=== PATIENT | female | born 1985 | race African-American/Black ===

== ENCOUNTER 2016-09-12 15:42 | Inpatient (IN) | payer SELFPAY ==
[~2016-09-12] VITALS: Ht 157.5 cm; Wt 69.4 kg
[2016-09-15 20:28] VITALS: Ht 157.5 cm; Wt 69.4 kg
[2016-09-15] MEDS ORDERED: AMPICILLIN 2 GM/NS (PMX) 100 ML IV ONE (20:30)
[2016-09-15] MEDS ORDERED: OXYTOCIN 30 UNITS/LR 500 ML IV PRN (20:30)
[2016-09-15] MEDS ORDERED: LIDOCAINE 1% (MPF) 30 ML INJ INJ PRN (20:30)
[2016-09-15] MEDS ORDERED: METHYLERGONOVINE 0.2 MG INJ IM PRN (20:30)
[2016-09-15] MEDS ORDERED: CARBOPROST 250 MCG INJ IM PRN (20:30)
[2016-09-15] MEDS ORDERED: BUTORPHANOL 2 MG INJ IV PRN (20:30)
[2016-09-15] MEDS ORDERED: MISOPROSTOL 200 MCG TAB PR PRN (20:30)
--- NOTE | 2016-09-15 21:22 | RADRPT ---
PROCEDURE: US OB. CLINICAL INDICATION: Induction of labor. Uncertain dates. TECHNIQUE: Multiple sonographic images of the uterus were obtained. The images were revi ewed on a PACS workstation. COMPARISON: No prior studies are available for comparison. FINDINGS: There is a single live intrauterine gestation. heart rate is 136 beats per minute. Measurements were made in order to determine age. The results are as follows: BPD = not visualized due to low position. HC = not visualized due to low position. AC = 36.14 cm. FL = 7.99 cm. Estimated weight is 4053 +/- 648 grams. LMP growth percentile is 78 %. Menstrual age by ultrasound dates is 40 weeks 3 days. Position is cephalic and placenta is anterior grade III. There is no evidence for an abruption or pl acenta previa. IMPRESSION: 1. Single live intrauterine gestation of 40 weeks 3 days menstrual age by ultrasound dates. 2. The position is cephalic with head in low position. RPTAT: QQ .Skip Hammond MD, MD Date Time Electronically viewed and signed by .Skip Hammond MD, on 09/15/2016 21:22 .R/
[2016-09-15 21:28] LABS: ADD SCAN DIFF NO
[2016-09-15] MEDS: LACTATED RINGER'S 1,000 ML IV SCH (21:29)
[2016-09-15 21:35] LABS: BASOPHILS % 0.3 % (0.0-2.0); HEMATOCRIT 33.2 % (37.0-47.0); HEMOGLOBIN 11.4 g/dl (12.0-16.0); LYMPHOCYTES # 1.3 10^3/ul (0.8-2.9); LYMPHOCYTES % 17.5 % (15.0-51.0); MEAN CORPUSCULAR HEMOGLOBIN 28.6 pg (29.0-33.0); MEAN CORPUSCULAR HGB CONC 34.3 g/dl (32.0-37.0); MEAN CORPUSCULAR VOLUME 83.4 fl (82.0-101.0); MEAN PLATELET VOLUME 10.8 fl (7.4-10.4); MONOCYTE # 0.6 10^3/ul (0.3-0.9); MONOCYTES % 7.2 % (0.0-11.0); NEUTROPHIL # 5.7 10^3/ul (1.6-7.5); PLATELET COUNT 238 10^3/UL (140-415); RED BLOOD COUNT 3.98 10^6/ul (4.20-5.40); RED CELL DISTRIBUTION WIDTH 13.5 % (11.5-14.5); WHITE BLOOD COUNT 7.7 10^3/ul (4.8-10.8)
[2016-09-15 21:42] LABS: INR 0.88; PROTIME 11.9 Sec (12.2-14.2); PT RATIO 0.9
[2016-09-15 21:43] LABS: PARTIAL THROMBOPLASTIN TIME 23.3 Sec (25.0-35.0)
[2016-09-15] MEDS ORDERED: LACTATED RINGER'S 1,000 ML IV PRN (23:00)
[2016-09-16] MEDS: AMPICILLIN 1 GM/NS (PMX) 50 ML IV SCH ×6 (02:04→20:23)
[2016-09-16] MEDS ORDERED: DINOPROSTONE 10 MG VAG SUPP VAG ONE ×2 (04:00→18:00)
[2016-09-16] MEDS: LACTATED RINGER'S 1,000 ML IV SCH ×3 (05:15→23:22)
--- NOTE | 2016-09-16 13:41 | HP ---
Date/Time of Note Date/Time of Note DATE: 09/16/16 TIME: 13:34 OB - History Hx of Present Free Text/Dictation 30 y.o EDC 09/12/16 CAME FOR INDUCTION OF LABOR FOR POSTDATE INTIAL VE FTP LONG -3 HAVINF UTERINE CONTRACTION IRREGULARLY EFW 4053 +/- 648 ADMITTED FOR INDUCTION BY CERVIDIL INSERTION Chief Complaint: FOR INDUCTION Estimated Due Date: Sep 12, 2016 : 1 Para: 0 Spontaneous : 0 Therapeutic : 0 Care: Good Care Ultrasounds: Normal mid trimester US Obstetrical Complications: None Medical Complications: None Past Family/Social History * Past Medical, Surgical, Family and Obstetric Histories reviewed from chart. Blood Type: B+ Rubella: immune RPR/VDRL: Negative GBS Status: Positive HBsAG: Negative OB Admission Exam Physical Exam HEENT: WNL Heart: Rhythm Normal Lungs: Clear, Equal Abdomen: WNL Extremities: Normal Reflexes: Normal Cervical Dilatation: Fingertip Effacement: 0% Station: -3 Membranes: Intact Amniotic Fluid: Unevaluable Heart Rate: 130's Accelerations: Accelerations Present Decelerations: No Decelerations Varibility: Moderate Contractions on Admission: >10 Minutes Apart Intensity: Mild Last 72 hours Lab Results CBC & BMP 09/15/16 21:00 OB Assessment/Plan Other Assessment: IUP 40W3D FOR INDUCTION Plan: Induction Induction Method: per Misoprostol Protocol BRANDO LLANOS MD Sep 16, 2016 13:41
[2016-09-17] MEDS: AMPICILLIN 1 GM/NS (PMX) 50 ML IV SCH ×6 (00:40→20:09)
[2016-09-17] MEDS: LACTATED RINGER'S 1,000 ML IV SCH ×3 (05:53→20:09)
[2016-09-17 07:43] VITALS: BP 106/68; PULSE 84; RESP 20
[2016-09-17] MEDS ORDERED: OXYTOCIN 30 UNITS/LR 500 ML IV SCH ×2 (15:00)
[2016-09-17] MEDS: OXYTOCIN 30 UNITS/LR 500 ML IV SCH (15:12)
[2016-09-17] MEDS ORDERED: DINOPROSTONE 10 MG VAG SUPP VAG ONE (20:00)
[2016-09-18] MEDS: AMPICILLIN 1 GM/NS (PMX) 50 ML IV SCH ×2 (00:31→04:25)
[2016-09-18] MEDS: LACTATED RINGER'S 1,000 ML IV SCH ×3 (00:31→17:37)
[2016-09-18] MEDS ORDERED: MISOPROSTOL 25 MCG CAPSULE PO SCH (09:00)
--- NOTE | 2016-09-18 16:12 | RADRPT ---
PROCEDURE: US biophysical profile. CLINICAL INDICATION: Decreased motion. TECHNIQUE: Multiple sonographic images of the uterus were obtained. The images were revi ewed on a PACS workstation. COMPARISON: No prior studies are available for comparison. FINDINGS: There is a single live intrauterine gestation. heart rate is 139 beats per minute. The position is cephalic. The placenta is anterior grade II with no abruption or previa. The ANDRE is 20.0 cm. (Normal = 5-20 cm.) Breathing Movement: 2 Gross Body Movement: 2 Tone: 2 Qualitative Amniotic Fluid Volume: 2 TOTAL: 8 IMPRESSION: 1. The biophysical score is 8/8. RPTAT: QQ .Skip Hammond MD, MD Date Time Electronically viewed and signed by .Skip Hammond MD, on 09/18/2016 16:12 .R/
[2016-09-18] MEDS ORDERED: FENTAnyl 2MCG/ML-ROPIV 0.2% 100 ML ONE (22:14)
[2016-09-18] MEDS: OXYTOCIN 30 UNITS/LR 500 ML IV SCH (23:26)
[2016-09-19] MEDS ORDERED: ONDANSETRON 4 MG INJ IV PRN
[2016-09-19] MEDS ORDERED: NALOXONE (0.4 MG/ML) INJ IV PRN
[2016-09-19] MEDS ORDERED: FENTAnyl 2MCG/ML-ROPIV 0.2% 100 ML BAG EPI SCH ×2
[2016-09-19] MEDS ORDERED: DIPHENHYDRAMINE 50 MG INJ IV PRN
[2016-09-19] MEDS: LACTATED RINGER'S 1,000 ML IV SCH ×3 (01:50→13:54)
[2016-09-19] MEDS ORDERED: AMPICILLIN 2 GM/NS (PMX) 100 ML ONE (07:21)
[2016-09-19] MEDS ORDERED: PRENAT PO (07:29)
[2016-09-19] MEDS ORDERED: AMPICILLIN 2 GM/NS (PMX) 100 ML IVPB ONE (07:30)
[2016-09-19] MEDS: DEXTROSE 5%-LR 1,000 ML IV SCH ×2 (09:08→16:05)
[2016-09-19] MEDS: AMPICILLIN 1 GM/NS (PMX) 50 ML IVPB SCH ×3 (11:38→16:00)
--- NOTE | 2016-09-19 17:07 | LDN ---
Date/Time of Note Date/Time of Note DATE: 09/19/16 TIME: 17:04 Delivery Summary normal vaginal delivery Placenta Delivered: Spontaneously Perineum intact?: No Perineal laceration: 2 Perineal laceration repair: 00ch gut Anesthesia type: Epidural Sponge & Needle done & correct: Yes All needle counts correct: Yes Any foreign bodies felt in the: No Problems: Delivery Information Sex Infant Sex: female Apgars 1 Minute: 8 5 Minute: 9 Suctioning Delee suction performed: No Umbilical Cord Umbilical cord with: 3 Vessels Cord presentations: no nuchal cord Cord Blood was obtained: Yes Mother & Baby Disposition Disposition Mom & Baby to Maternity; Good: Yes Mom transferred to: Other () Baby to NICU: No BRANDO LLANOS MD Sep 19, 2016 17:06
[2016-09-19] MEDS: IBUPROFEN 600 MG TAB PO PRN ×2 (17:20→19:26)
[2016-09-19 20:45] VITALS: BP 114/54; PULSE 85; RESP 18
[2016-09-19] MEDS ORDERED: BENZOCAINE 20% 56 ML SPRAY TOP PRN (22:00)
[2016-09-19] MEDS ORDERED: OXYCODONE/ASPIRIN (4.88/325) TAB PO PRN ×2 (22:00)
[2016-09-19] MEDS ORDERED: ZOLPIDEM 5 MG TAB PO PRN (22:00)
[2016-09-19] MEDS ORDERED: LANOLIN 7 GM TUBE TOP PRN (22:00)
[2016-09-19] MEDS ORDERED: MISOPROSTOL 200 MCG TAB PR PRN (22:00)
[2016-09-19] MEDS ORDERED: CARBOPROST 250 MCG INJ IM PRN (22:00)
[2016-09-19] MEDS ORDERED: METHYLERGONOVINE 0.2 MG INJ IM PRN (22:00)
[2016-09-19] MEDS ORDERED: OXYTOCIN 30 UNITS/LR 500 ML IV PRN (22:00)
[2016-09-19] MEDS ORDERED: WITCH HAZEL/GLYCERIN PAD PR PRN (22:00)
[2016-09-19] MEDS: IBUPROFEN 600 MG TAB PO SCH (23:42)
[2016-09-20] VITALS: BP 99/67; PULSE 91; RESP 18
[2016-09-20 04:00] VITALS: BP 97/56; PULSE 88; RESP 18
[2016-09-20] MEDS: IBUPROFEN 600 MG TAB PO SCH ×3 (05:45→18:00)
[2016-09-20 07:30] LABS: ADD SCAN DIFF NO
[2016-09-20 07:33] LABS: BASOPHILS % 0.2 % (0.0-2.0); EOSINOPHILS % 0.2 % (0.0-7.0); HEMATOCRIT 22.9 % (37.0-47.0); HEMOGLOBIN 7.9 g/dl (12.0-16.0); LYMPHOCYTES # 1.5 10^3/ul (0.8-2.9); LYMPHOCYTES % 11.2 % (15.0-51.0); MEAN CORPUSCULAR HEMOGLOBIN 28.4 pg (29.0-33.0); MEAN CORPUSCULAR HGB CONC 34.5 g/dl (32.0-37.0); MEAN CORPUSCULAR VOLUME 82.4 fl (82.0-101.0); MEAN PLATELET VOLUME 10.9 fl (7.4-10.4); MONOCYTE # 1.1 10^3/ul (0.3-0.9); MONOCYTES % 8.5 % (0.0-11.0); NEUTROPHIL # 10.3 10^3/ul (1.6-7.5); NEUTROPHILS % 79.4 % (39.0-77.0); PLATELET COUNT 179 10^3/UL (140-415); RED BLOOD COUNT 2.78 10^6/ul (4.20-5.40); RED CELL DISTRIBUTION WIDTH 13.6 % (11.5-14.5)
[2016-09-20 08:00] VITALS: BP 95/55; PULSE 85; RESP 18
[2016-09-20 12:30] VITALS: BP 108/60; PULSE 91; RESP 18
[2016-09-20] MEDS: SENNA/DOCUSATE NA (8.6MG/50MG) TAB PO SCH ×2 (12:51→21:08)
[2016-09-20 15:34] VITALS: BP 107/56; PULSE 85; RESP 18
[2016-09-20 20:00] VITALS: BP 115/53; PULSE 85; RESP 18
[2016-09-20] MEDS: FERROUS GLUCONATE (EC) 325 MG TAB PO SCH (21:08)
--- NOTE | 2016-09-20 21:10 | PN ---
Date/Time of Note Date/Time of Note DATE: 09/20/16 TIME: 20:58 OB Subjective Subjective Subjective sleepy no other c/o such as dizziness or palpitation OB Objective Objective Objective vss afebrile fundus firm lochia min ext neg OB Assessment/Plan Other Assessment: stable s/p normal vaginal delivery Other plan: discharge home in am BRANDO LLANOS MD Sep 20, 2016 21:09
--- NOTE | 2016-09-20 21:12 | PD.PPDC ---
[facility] Discharge Instruction Diagnosis Final Diagnosis: s/p normal vaginal delivery Condition Patient Condition: Stable Diet Diet: Resume Regular Diet Activity/Restrictions Activity: May Shower Restrictions: No Lifting No Sexual Activity Nothing in the Vagina No [place] No Tampons, douche Follow-up Follow-up with Physician: 2, Week/Weeks Return to clinic for [facility] Instructions: Fever greater than 101 Chills Worsening abdominal pain Excessive Vaginal Bleeding More than 2 pads per hour Unable to tolerate diet OB Instructions: Breast Tenderness Depression Blurried Vision Headache BRANDO LLANOS MD Sep 20, 2016 21:12
--- NOTE | 2016-09-20 21:14 | DS ---
Date/Time of Note Date/Time of Note DATE: 09/20/16 TIME: 21:13 Obstetrical Discharge Record Final Diagnosis Final Diagnosis: Term delivered Vaginal Delivery Obstetrical Delivery: Spontaneous, Laceration, Repaired Complications Other (postdate) Augmentation: Yes Induction: Yes Condition on Discharge Physical Assessment Last Vitals: vss afebrile Voiding: Yes Bowel Movement: No Breast: Soft, non-tender Fundus: Firm Calf Tenderness: No Patient Condition: Stable BRANDO LLANOS MD Sep 20, 2016 21:14
[2016-09-21] MEDS: IBUPROFEN 600 MG TAB PO SCH ×3 (00:18→12:36)
[2016-09-21 04:00] VITALS: BP 104/51; PULSE 77; RESP 18
[2016-09-21 08:00] VITALS: BP 102/57; PULSE 87; RESP 19
[2016-09-21] MEDS ORDERED: DIPHTH/TET/ACEL PERTUSS (ADULT) 0.5 ML VIAL IM* ONE (09:00)
[2016-09-21] MEDS: FERROUS GLUCONATE (EC) 325 MG TAB PO SCH (10:12)
[2016-09-21] MEDS: SENNA/DOCUSATE NA (8.6MG/50MG) TAB PO SCH (10:12)
== END 2016-09-21 13:30 | disposition home or self-care (01) | DRG 775 ==
LOC: EDSTATUS 19:25 → L-D 09-15 19:27 → PP1 09-19 21:32
PROVIDERS: ADMIT Obstetrics & Gynecology; ATTEND Obstetrics & Gynecology
PROC: 10E0XZZ Delivery of Products of Conception, External Approach (ICD-10-PCS; principal; 2016-09-19)
PROC: 0KQM0ZZ Repair Perineum Muscle, Open Approach (ICD-10-PCS; 2016-09-19)
PROC: 3E0P7GC Introduction of Other Therapeutic Substance into Female Reproductive, Via Natural or Artificial Opening (ICD-10-PCS; 2016-09-19)
DX: O48.0 Post-term pregnancy (principal); O70.1 Second degree perineal laceration during delivery; Z37.0 Single live birth; Z3A.40 40 weeks gestation of pregnancy
CPT/HCPCS: 62319; 76815; 76818; 85025; 85610; 85730; 86592; 86703; 86900; 86901; 87340; 90715; 99464; J0290; J2405; J2590; J3010; J7120; J7121